=== PATIENT | female | born 1950 | race Caucasian/White ===

== ENCOUNTER 2017-05-10 08:00 | Outpatient (CLI) | payer MEDICARE, BC | END 2017-05-10 08:01 | disposition home or self-care (01) | LOC: BICMAMMO 08:00 | PROVIDERS: ATTEND Physician Assistant | DX: Z12.31 Encounter for screening mammogram for malignant neoplasm of breast (principal) | CPT/HCPCS: 77067; G0202 ==

== ENCOUNTER 2018-05-16 12:43 | Outpatient (CLI) | payer MEDICARE, OTHER | END 2018-05-16 12:44 | disposition home or self-care (01) | LOC: BICMAMMO 12:43 | PROVIDERS: ATTEND General Practice | DX: Z12.31 Encounter for screening mammogram for malignant neoplasm of breast (principal); N63.10 Unspecified lump in the right breast, unspecified quadrant; Z80.3 Family history of malignant neoplasm of breast | CPT/HCPCS: 77063; 77067 ==

== ENCOUNTER 2018-07-10 07:58 | Outpatient (CLI) | payer MEDICARE, OTHER ==
--- NOTE | 2018-07-10 08:53 | ULT ---
RIGHT UPPER QUADRANT ULTRASOUND: Date: 07-10-18 History: Right upper quadrant abdominal pain. FINDINGS: The liver demonstrates increased echogenicity relative to the right kidney suggesting diffuse fatty i nfiltration. No focal hepatic lesion is appreciated. The gallbladder, visualized portions of the pancreas, visualized portions of the IVC, and right kidne y demonstrate a normal sonographic appearance. The right kidney measures 9.4 cm in length. The common duct measures 0.7 cm in diameter which is at the upper limits of normal for patient's age. No intrah epatic biliary ductal dilatation is appreciated. IMPRESSION: 1. Diffuse fatty infiltration of the liver. 2. Common duct is at the upper limits of normal in size and measures 0.7 cm in diameter, likely withi n normal limits for the patient's age. POS: PIPER
== END 2018-07-10 07:59 | disposition home or self-care (01) ==
LOC: SCSULT 07:58
PROVIDERS: ATTEND General Practice
DX: R10.11 Right upper quadrant pain (principal); R50.9 Fever, unspecified; R11.0 Nausea; K76.0 Fatty (change of) liver, not elsewhere classified
CPT/HCPCS: 76705